=== PATIENT | female | born 1995 | race Caucasian/White ===

== ENCOUNTER 2017-09-09 19:54 | Inpatient (IN) | payer OTHER, MEDICAID ==
[~2017-09-09] VITALS: Ht 160 cm; Wt 94.3 kg
[2017-09-09 19:59] VITALS: BP 122/84
[2017-09-09] MEDS ORDERED: SYNTHROID150 MCG PO (20:07)
[2017-09-09 20:19] LABS: ABSOLUTE BASOPHILS 0.1 thou/uL (0.0-0.2); ABSOLUTE EOSINOPHILS 0.4 thou/uL (0.0-0.7); ABSOLUTE LYMPHOCYTES 2.6 thou/uL (0.8-5.3); ABSOLUTE MONOCYTES 0.4 thou/uL (0.0-1.2); ABSOLUTE NEUTROPHILS 3.8 thou/uL (1.6-8.1); BASOPHILS 0.8 %; EOSINOPHILS 6.2 %; HEMATOCRIT 39.6 % (37.0-47.0); LYMPHOCYTES 36.1 %; MCH 26.7 pg (26.0-34.0); MCV 80.9 fL (80.0-100.0); MPV 8.4 fl. (7.2-11.1); NUCLEATED RBCS 0 /100WBC; PLATELET COUNT* 286 thou/uL (150-400); POLYS 51.9 %; RBC 4.89 mil/uL (4.20-5.00); RDW-CV 15.1 % (10.5-14.5); WBC 7.2 thou/uL (4.0-11.0)
[2017-09-09 20:25] LABS: CALCIUM 8.8 mg/dL (8.5-10.1); CREATININE 0.9 mg/dL (0.6-1.3); POTASSIUM 3.5 mmol/L (3.5-5.1)
[2017-09-09 20:30] LABS: ALBUMIN 3.5 g/dL (3.4-5.0); TOTAL BILIRUBIN 0.3 mg/dL (<0.1-1.0); TOTAL PROTEIN 7.1 g/dL (6.4-8.2)
[2017-09-09 20:44] LABS: URINE BILIRUBIN NEGATIVE (Negative); URINE BLOOD 3+ (Negative); URINE CLARITY CLEAR; URINE COLOR YELLOW; URINE GLUCOSE-RANDOM NEGATIVE (Negative); URINE KETONES NEGATIVE (Negative); URINE LEUKOCYTES-REFLEX 1+ (Negative); URINE NITRITE-REFLEX NEGATIVE (Negative); URINE PROTEIN NEGATIVE (Negative); URINE SPECIFIC GRAVITY 1.025 (1.005-1.030); URINE UROBILINOGEN 0.2 E.U./dl (0.2-1.0)
[2017-09-09 21:01] LABS: CASTS None Seen /LPF (None Seen); SQUAMOUS >10 Many /LPF (0-3)
[2017-09-09 21:02] LABS: URINE RBC 3-10 Few /HPF (0-2); URINE WBC-REFLEX 0-5 Rare /HPF (0-5)
[2017-09-09 21:03] LABS: CRYSTALS None Seen /LPF (None Seen)
[2017-09-09 23:50] VITALS: BP 126/83
[2017-09-10] VITALS: BP 109/62
--- NOTE | 2017-09-10 00:53 | NUR ---
ALERT AND ORIENTED X 4 FEMALE PATIENT TO ROOM 112 BY CART FROM ER IN STABLE CONDITION. UP INDEPENDENTLY WITH STEADY GAIT. VITAL SIGNS STABLE. PLAN OF CARE REVIEWED. PATIENT VERBALIZES UNDERSTANDING AND IN AGREEMENT. ADMISSION ROUTINES IN PROGRESS. CONTINUE TO MONITOR.
[2017-09-10 05:14] LABS: CALCIUM 8.7 mg/dL (8.5-10.1); CREATININE 0.9 mg/dL (0.6-1.3); POTASSIUM 3.9 mmol/L (3.5-5.1); TOTAL BILIRUBIN 0.4 mg/dL (<0.1-1.0); TOTAL PROTEIN 5.7 g/dL (6.4-8.2)
--- NOTE | 2017-09-10 05:39 | NUR ---
PATIENT HAS REMAINED ALERT AND ORIENTED X 4 THROUGHOUT THE SHIFT AND RESTING QUIETLY ON HOURLY ROUNDS. IVF'S AND ANTIBIOTICS PER ORDERS. PATIENT HAS NOT REQUIRED PAIN OR NAUSEA MEDICATION SINCE ARRIVAL TO UNIT. MOTHER AT BEDSIDE. CONTINUE TO MONITOR.
[2017-09-10 08:15] VITALS: BP 114/58
--- NOTE | 2017-09-10 16:50 | NUR ---
PATIENT REMAINS ALERT AND ORIENTED. DENIES PAIN OR NAUSEA. TOLERATED MEALS. AWAITING DR. ALCALA FOR DC ORDERS. PATIENT PLANS TO HAVE [facility] OUTPATIEN. UP AD NICK. FAMILY AT BEDSIDE. ANXIOUS TO GET HOME WITH NEW BABY.
[2017-09-10 17:23] VITALS: BP 95/65
[2017-09-10] MEDS ORDERED: KEFLEX500 M1 PO (18:19)
[2017-09-10 18:23] VITALS: BP 95/65
--- NOTE | 2017-09-10 19:09 | NUR ---
PATIENT DISCHARGED TO HOME AT THIS TIME. IV REMOVED. SCRIPT FOR KEFLEX GIVEN. EDUCATED ON LOW FAT DIET. PATIENT VERBALIZES UNDERSTANDING OF NEED FOR SURGERY FOLLOW UP. DISCHARGED WITH MOM AND SPOUSE.
--- NOTE | 2017-09-18 15:01 | CON ---
[address] [address] CONSULTATION Name: MARIS LNIDAN Room: [address] IN M.R.#: [id number] Admission: 09/09/17 Attend Phys: Shree Haynes, Discharge: 09/10/17 Date of : 89 Report #: [id number] THIS REPORT FOR: //name// CC: KELLY physician/PCP Shree Haynes DATE OF SERVICE: 09/10/2017 REQUESTING PHYSICIAN: Dr. Shree Haynes. HISTORY OF PRESENT ILLNESS: This is a 22-year-old female with significant family history of gallbladder disease as her mom and mom's siblings, all have had gallbladder disease and had cholecystectomies in the past. The patient has had recent delivery as her baby was born a month ago. She presents with acute abdominal pain, which started yesterday and lasted 15 minutes and then resolves on its own. The patient reports that the pain came back once again and it was so severe that made her come to ER. Since her Emergency Room visit, she had labs which included liver enzymes and CBC. She also has had a CT of abdomen and pelvis and abdominal ultrasound. She currently denies any pain, nausea, vomiting, abdominal pain, diarrhea, constipation, dysuria, fever, and chills. PAST MEDICAL HISTORY: Significant for history of recent childbirth, hyperthyroidism. ALLERGIES: No known drug allergy. MEDICATIONS: Please refer to hospital [facility]. SOCIAL HISTORY: The patient is , has had a recent baby. She denies tobacco or alcohol use. FAMILY HISTORY: Significant for family history of gallbladder disease. PHYSICAL EXAMINATION: VITAL SIGNS: Reveals blood pressure of 114/58, respiration 18, pulse 69, temperature 98.4. LUNGS: Clear. CARDIOVASCULAR: Regular. ABDOMEN: Soft, nontender, nondistended. Bowel sounds are positive. NEUROLOGIC: The patient is alert, oriented x 3. LABORATORY DATA: Reveal sodium of 140, potassium 3.9, BUN is 7, creatinine 0.9, glucose of 104, AST 16, ALT 15 with albumin of 3.0, total bilirubin is 0.4 with lipase of 157 and total bilirubin of 0.4. WBC is 7.2, hemoglobin 13 and [facility] [address] [place] [address] CONSULTATION Name: MARIS LINDA Room: [address]#: [id number] Admission: 09/09/17 Attend Phys: Shree Haynes, Discharge: 09/10/17 Date of : 89 Report #: [id number] platelet of 286. IMAGING: Abdominal ultrasound revealed evidence of cholelithiasis with stones and sludge in the gallbladder. The gallbladder also is distended measuring 11.9 cm with mild wall thickening. There is also ductal dilatation as CBD is 13 mm per the study. IMPRESSION AND PLAN: The patient with evidence of acute cholecystitis who already has been started on antibiotics. Therefore, we will continue antibiotics. Her liver enzymes are completely normal, but she has ductal dilatation per ultrasound. Since LFTs are normal and there is no evidence of obstruction per her liver enzymes, we will recommend lap andrew with IOC and if there was any ductal lesions or stones, we will consider ERCP. <ELECTRONICALLY SIGNED> By: Grzegorz Hassan MD 09/18/17 [id number] 1911Grzegorz Hassan MD /nt
== END 2017-09-10 19:09 | disposition home or self-care (01) | DRG 776 ==
LOC: M.ERS 19:54 → M.TBA-ER 22:44 → M.ORTHSURG 22:44
PROVIDERS: Nurse Practitioner Family; ADMIT Family Medicine
DX: O99.63 Diseases of the digestive system complicating the puerperium (principal); K80.00 Calculus of gallbladder with acute cholecystitis without obstruction; F17.210 Nicotine dependence, cigarettes, uncomplicated; E03.9 Hypothyroidism, unspecified; O86.20 Urinary tract infection following delivery, unspecified; O99.285 Endocrine, nutritional and metabolic diseases complicating the puerperium